=== PATIENT | male | born 1945 | race African-American/Black ===

== ENCOUNTER 2017-03-17 11:25 | Inpatient (IN) | payer MEDICARE, BC ==
[~2017-03-17] VITALS: Ht 180.3 cm; Wt 98.9 kg
[2017-03-17 12:55] LABS: BASOPHILS % 0.8 % (0.0-2.0); EOSINOPHILS % 0.5 % (0.0-5.0); HEMATOCRIT. 35.5 % (42.0-52.0); HEMOGLOBIN. 12.6 g/dL (14.0-18.0); MEAN CORPUSCULAR VOLUME 98.3 fL (80.0-94.0); MEAN PLATELET VOLUME 8.4 fl (7.4-10.4); MONOCYTES % 6.6 % (2.0-8.0); NEUTROPHILS % 75.1 % (40.0-76.0); PLATELET 145 x1000/uL (130-400); RED BLOOD CELL COUNT 3.61 mill/uL (4.7-6.1); RED CELL DISTRIBUTION WIDTH 15.1 % (11.6-14.6)
[2017-03-17 13:03] LABS: INR 1.1
[2017-03-17 13:07] LABS: CARBON DIOXIDE 34 mEq/L (21-32); CHLORIDE 87 mEq/L (98-107)
[2017-03-17] MEDS ORDERED: SODIUM CHLORIDE 0.9% 1,000 ML IV ONE (13:19)
[2017-03-17] MEDS ORDERED: KCL 20MEQ/100ML PREMIX 100 ML IV ONE (13:30)
[2017-03-17] MEDS ORDERED: POTASSIUM CHLORIDE 20MEQ TABLET SR PO ONE (13:30)
[2017-03-17 14:24] LABS: GLUCOSE URINE NEGATIVE (NEGATIVE); KETONES URINE 3+ (NEGATIVE); LEUKOCYTE ESTERASE URINE 2+ (NEGATIVE); NITRITE URINE POSITIVE (NEGATIVE); OCCULT BLOOD URINE NEGATIVE (NEGATIVE); PH URINE 5.5 (4.5-8.0); PROTEIN URINE TRACE (NEGATIVE); SPECIFIC GRAVITY URINE 1.024 (1.005-1.030)
[2017-03-17 14:27] LABS: CLARITY URINE HAZY (CLEAR); COLOR URINE AMBER (YELLOW)
[2017-03-17] MEDS ORDERED: CEFTRIAXONE 1 G PREMIX 50 ML IV ONE (15:00)
[2017-03-17 20:18] VITALS: BP 121/68
[2017-03-17] MEDS ORDERED: ONDANSETRON HCL 4MG/2ML VIAL IV PRN (22:15)
[2017-03-17] MEDS ORDERED: ACETAMINOPHEN 325MG TABLET PO PRN (22:15)
[2017-03-17] MEDS ORDERED: ZOLPIDEM TARTRATE 5MG TABLET PO PRN (22:15)
[2017-03-17] MEDS: DEXT 5%/0.45% NACL KCL 30MEQ/L 1,000 ML IV SCH (23:40)
[2017-03-18] VITALS: BP 109/64
[2017-03-18 00:03] LABS: CARBON DIOXIDE 31 mEq/L (21-32); CHLORIDE 92 mEq/L (98-107); PHOSPHORUS 2.7 mg/dL (2.5-4.9)
[2017-03-18 04:00] VITALS: BP 107/64
[2017-03-18 07:07] LABS: CARBON DIOXIDE 34 mEq/L (21-32); CHLORIDE 93 mEq/L (98-107); PHOSPHORUS 2.2 mg/dL (2.5-4.9)
[2017-03-18 08:00] VITALS: BP 123/73
[2017-03-18] MEDS: POTASSIUM BICARB/CIT ACID 25 MEQ TABLET.EFF PO SCH ×3 (08:15→18:07)
[2017-03-18] MEDS: POLYETHYLENE GLYCOL 3350 (17GM) 1 DOSE PACK PO SCH (08:16)
[2017-03-18 08:49] LABS: BASOPHILS % 0.6 % (0.0-2.0); EOSINOPHILS % 0.7 % (0.0-5.0); HEMOGLOBIN. 10.6 g/dL (14.0-18.0); LYMPHOCYTES % 32.9 % (20.0-50.0); MEAN CORPUSCULAR HEMOGLOBIN 34.9 pg (28.0-32.0); MEAN CORPUSCULAR VOLUME 98.5 fL (80.0-94.0); MEAN PLATELET VOLUME 8.8 fl (7.4-10.4); MONOCYTES % 9.6 % (2.0-8.0); NEUTROPHILS % 56.2 % (40.0-76.0); PLATELET 116 x1000/uL (130-400); RED BLOOD CELL COUNT 3.05 mill/uL (4.7-6.1); RED CELL DISTRIBUTION WIDTH 15.3 % (11.6-14.6)
[2017-03-18 09:34] LABS: CARBON DIOXIDE 34 mEq/L (21-32); CHLORIDE 92 mEq/L (98-107); PHOSPHORUS 2.3 mg/dL (2.5-4.9)
[2017-03-18 11:00] LABS: CLARITY URINE CLOUDY (CLEAR); COLOR URINE ORANGE (YELLOW); GLUCOSE URINE NEGATIVE (NEGATIVE); KETONES URINE 1+ (NEGATIVE); LEUKOCYTE ESTERASE URINE 3+ (NEGATIVE); NITRITE URINE POSITIVE (NEGATIVE); OCCULT BLOOD URINE NEGATIVE (NEGATIVE); PROTEIN URINE TRACE (NEGATIVE); SPECIFIC GRAVITY URINE 1.025 (1.005-1.030)
[2017-03-18 12:00] VITALS: BP_SYST 125; BP_SYST 143; BP_DIAS 56; BP_DIAS 83
[2017-03-18 16:00] VITALS: BP_SYST 114; BP_SYST 125; BP_DIAS 56; BP_DIAS 59
[2017-03-18 20:00] VITALS: BP 115/71
[2017-03-19] VITALS: BP 129/91
[2017-03-19 04:00] VITALS: BP 125/51
[2017-03-19] MEDS: DEXT 5%/0.45% NACL KCL 30MEQ/L 1,000 ML IV SCH ×2 (04:58→14:09)
[2017-03-19 07:51] LABS: CARBON DIOXIDE 32 mEq/L (21-32); CHLORIDE 97 mEq/L (98-107); PHOSPHORUS 2.1 mg/dL (2.5-4.9)
[2017-03-19 08:00] VITALS: BP 110/79
[2017-03-19] MEDS: POLYETHYLENE GLYCOL 3350 (17GM) 1 DOSE PACK PO SCH (08:12)
[2017-03-19] MEDS: POTASSIUM BICARB/CIT ACID 25 MEQ TABLET.EFF PO SCH ×3 (08:12→17:07)
[2017-03-19 12:00] VITALS: BP 138/90
[2017-03-19 16:00] VITALS: BP 128/76
[2017-03-19 20:00] VITALS: BP 134/86
[2017-03-19 22:21] LABS: CREATINE KINASE 81 IU/L (39-308)
[2017-03-19] MEDS ORDERED: FURO20TA4 PO (23:56)
[2017-03-19] MEDS ORDERED: CHOL20004 PO (23:56)
[2017-03-19] MEDS ORDERED: POTA10CA42 PO (23:56)
[2017-03-20] VITALS: BP 109/63
[2017-03-20 04:00] VITALS: BP 131/82
[2017-03-20 08:00] VITALS: BP 156/85
[2017-03-20] MEDS: POLYETHYLENE GLYCOL 3350 (17GM) 1 DOSE PACK PO SCH (08:23)
[2017-03-20 08:45] LABS: CARBON DIOXIDE 30 mEq/L (21-32); CHLORIDE 100 mEq/L (98-107); PHOSPHORUS 1.9 mg/dL (2.5-4.9)
[2017-03-20 12:00] VITALS: BP 106/86
[2017-03-20 16:00] VITALS: BP 119/73
[2017-03-20 20:00] VITALS: BP 118/65
[2017-03-21] VITALS: BP 106/74
[2017-03-21 04:00] VITALS: BP 129/79
[2017-03-21] MEDS: DEXT 5%/0.45% NACL KCL 30MEQ/L 1,000 ML IV SCH ×2 (05:54→16:23)
[2017-03-21 08:00] VITALS: BP 124/73
[2017-03-21] MEDS: POLYETHYLENE GLYCOL 3350 (17GM) 1 DOSE PACK PO SCH (08:16)
[2017-03-21 12:00] VITALS: BP 136/85
[2017-03-21] MEDS ORDERED: POTASSIUM PHOS,M-BASIC-D-BASIC 30 MMOL in DEXT 5% WATER 500 ML IV ONE (14:00)
[2017-03-21 16:00] VITALS: BP 103/53
[2017-03-21 20:00] VITALS: BP 106/76
[2017-03-22] VITALS: BP 124/78
[2017-03-22 08:00] VITALS: BP 101/59
[2017-03-22] MEDS: POLYETHYLENE GLYCOL 3350 (17GM) 1 DOSE PACK PO SCH (09:41)
[2017-03-22 12:00] VITALS: BP 106/67
[2017-03-22 14:47] VITALS: BP 106/67
[2017-03-22 16:00] VITALS: BP_SYST 113; BP_SYST 131; BP_DIAS 73; BP_DIAS 77
== END 2017-03-22 19:00 | DRG 551 ==
LOC: ER 11:40 → 8WST 15:07 → EDBEDREQ 15:11 → EDBEDREQSVC 15:11 → EDBEDREQTM 15:11 → ENRESERV 18:42
PROVIDERS: ADMIT Internal Medicine; ATTEND Internal Medicine
DX: M48.02 Spinal stenosis, cervical region (principal); E43 Unspecified severe protein-calorie malnutrition; N39.0 Urinary tract infection, site not specified; G83.9 Paralytic syndrome, unspecified; D64.9 Anemia, unspecified; G62.9 Polyneuropathy, unspecified; E44.0 Moderate protein-calorie malnutrition; G95.29 Other cord compression; I10 Essential (primary) hypertension; E87.6 Hypokalemia; M48.06 Spinal stenosis, lumbar region; I25.10 Atherosclerotic heart disease of native coronary artery without angina pectoris; I73.9 Peripheral vascular disease, unspecified; E55.9 Vitamin D deficiency, unspecified; M19.90 Unspecified osteoarthritis, unspecified site; M25.78 Osteophyte, vertebrae; R27.0 Ataxia, unspecified; G31.84 Mild cognitive impairment of uncertain or unknown etiology; R47.1 Dysarthria and anarthria; N40.0 Benign prostatic hyperplasia without lower urinary tract symptoms; M47.892 Other spondylosis, cervical region; M47.893 Other spondylosis, cervicothoracic region; G47.00 Insomnia, unspecified; G89.29 Other chronic pain; Z68.30 Body mass index [BMI] 30.0-30.9, adult; Z98.61 Coronary angioplasty status; E86.0 Dehydration
CPT/HCPCS: 36415; 70450; 70551; 71010; 72141; 72148; 74176; 76770; 80048; 80053; 80069; 81001; 82024; 82088; 82533; 82550; 82570; 83605; 83735; 84100; 84133; 84156; 84300; 84550; 85025; 85610; 87040; 87086; 93005; 93970; 96365; 96366; 96368; 97163; 97166; 97530; 99285; A6261; C1893; J0696; J3480; J3490; J7030; J7060